=== PATIENT | female | born 1955 | race African-American/Black ===

== ENCOUNTER 2018-07-30 10:31 | Emergency (ER) | payer MEDICAID, MEDICARE ==
[~2018-07-30] VITALS: Ht 165.1 cm; Wt 90.0 kg
[~2018-07-30 10:31] MED LIST: AMLO5TAB88; BENZ1TAB7; DIVA-75; HYDR25TA; LEVO25TA7; LISI10TA5; PARO40TA75; RISP4; SIMV20TA2; ZOLP5TAB8
[2018-07-30] MEDS ORDERED: KETOROLAC 60MG/2ML VIAL IM ONE (11:15)
[2018-07-30 12:30] LABS: CLARITY URINE CLEAR (CLEAR); COLOR URINE YELLOW (YELLOW); KETONES URINE NEGATIVE (NEGATIVE); LEUKOCYTE ESTERASE URINE 1+ (NEGATIVE); NITRITE URINE NEGATIVE (NEGATIVE); OCCULT BLOOD URINE NEGATIVE (NEGATIVE); PH URINE 6.5 (4.5-8.0); PROTEIN URINE NEGATIVE (NEGATIVE); SPECIFIC GRAVITY URINE 1.012 (1.005-1.030); UROBILINOGEN URINE 0.2 E.U./dL (0.2-1.0)
[2018-07-30 14:47] VITALS: BP 134/82
== END 2018-07-30 14:45 | disposition home or self-care (01) ==
LOC: ER 10:44
DX: M54.5 Low back pain (principal); R53.1 Weakness; F31.9 Bipolar disorder, unspecified; I10 Essential (primary) hypertension; E03.9 Hypothyroidism, unspecified; F20.9 Schizophrenia, unspecified; Z88.0 Allergy status to penicillin; X50.3XXA Overexertion from repetitive movements, initial encounter; Y93.89 Activity, other specified; Y92.830 Public park as the place of occurrence of the external cause; Y99.8 Other external cause status
CPT/HCPCS: 81003; 96372; 99283; J1885

== ENCOUNTER 2019-02-11 11:52 | Emergency (ER) | payer MEDICARE, MEDICAID ==
[~2019-02-11] VITALS: Ht 170.2 cm; Wt 106.0 kg
[2019-02-11] MEDS ORDERED: SODIUM CHLORIDE 0.9% 1000ML BAG (SEPSIS BOLUS) IV ONE (12:30)
[2019-02-11] MEDS ORDERED: CEFTRIAXONE 1 G PREMIX 50 ML IV ONE (12:30)
[2019-02-11 12:44] LABS: BASOPHILS % 0.7 % (0.0-2.0); EOSINOPHILS % 1.5 % (0.0-5.0); HEMATOCRIT. 39.6 % (36.0-48.0); HEMOGLOBIN. 13.1 g/dL (12.0-16.0); LYMPHOCYTES % 9.3 % (20.0-50.0); MEAN CORPUSCULAR HEMOGLOBIN 30.7 pg (28.0-32.0); MEAN CORPUSCULAR VOLUME 92.7 fL (81.0-99.0); MEAN PLATELET VOLUME 7.9 fl (7.4-10.4); MONOCYTES % 7.2 % (2.0-8.0); NEUTROPHILS % 81.3 % (40.0-76.0); PLATELET 180 x1000/uL (130-400); RED BLOOD CELL COUNT 4.27 mill/uL (4.2-5.4); RED CELL DISTRIBUTION WIDTH 13.9 % (11.6-14.6)
[2019-02-11 12:48] LABS: CHLORIDE 101 mEq/L (98-107)
[2019-02-11 12:49] LABS: PROTHROMBIN TIME 10.1 sec (9.6-11.0)
[2019-02-11 12:55] LABS: ETHANOL BLOOD < 10 mg/dL
[2019-02-11 15:37] LABS: CLARITY URINE CLEAR (CLEAR); COLOR URINE YELLOW (YELLOW); KETONES URINE NEGATIVE (NEGATIVE); LEUKOCYTE ESTERASE URINE TRACE (NEGATIVE); NITRITE URINE NEGATIVE (NEGATIVE); OCCULT BLOOD URINE NEGATIVE (NEGATIVE); PH URINE 7.5 (4.5-8.0); PROTEIN URINE NEGATIVE (NEGATIVE); SPECIFIC GRAVITY URINE 1.007 (1.005-1.030); UROBILINOGEN URINE 0.2 E.U./dL (0.2-1.0)
[2019-02-11 16:10] LABS: *AMPHETAMINES SCREEN URINE NEGATIVE (NEGATIVE); *BARBITURATES SCREEN URINE NEGATIVE (NEGATIVE); *BENZODIAZEPINES SCREEN URINE NEGATIVE (NEGATIVE); *COCAINE SCREEN URINE NEGATIVE (NEGATIVE)
[2019-02-11 16:11] LABS: CANNABINOID URINE SCREEN NEGATIVE (NEGATIVE); METHADONE URINE SCREEN NEGATIVE (NEGATIVE); OPIATES URINE SCREEN NEGATIVE (NEGATIVE); PHENCYCLIDINE URINE SCREEN NEGATIVE (NEGATIVE)
[2019-02-11] MEDS ORDERED: LISINOPRIL 40MG TABLET PO ONE (17:45)
[2019-02-11] MEDS ORDERED: HYDROCHLOROTHIAZIDE 25MG TABLET PO ONE (17:45)
[2019-02-11] MEDS ORDERED: AMLODIPINE 10MG TABLET PO ONE (17:45)
[2019-02-11 18:49] VITALS: BP 160/103
== END 2019-02-11 19:08 | disposition home or self-care (01) ==
LOC: ER 11:52 → CANBEDREQ 19:58
DX: R42 Dizziness and giddiness (principal); F31.9 Bipolar disorder, unspecified; I10 Essential (primary) hypertension; E03.9 Hypothyroidism, unspecified; F20.9 Schizophrenia, unspecified; Z88.0 Allergy status to penicillin; Z79.899 Other long term (current) drug therapy
CPT/HCPCS: 36415; 70450; 71045; 80053; 80305; 80320; 81003; 83605; 83690; 84145; 84484; 85025; 85610; 87040; 87086; 93005; 96365; 99284; J0696; J7030; J7040; G0480

== ENCOUNTER 2020-02-23 11:29 | Inpatient (IN) | payer MEDICARE, MEDICAID ==
[~2020-02-23] VITALS: Ht 172.7 cm; Wt 106.1 kg
[2020-02-23 12:42] LABS: BASOPHILS % 0.7 % (0.0-2.0); EOSINOPHILS % 6.2 % (0.0-5.0); HEMATOCRIT. 37.8 % (36.0-48.0); HEMOGLOBIN. 12.9 g/dL (12.0-16.0); LYMPHOCYTES % 24.7 % (20.0-50.0); MEAN CORPUSCULAR HEMOGLOBIN 30.8 pg (28.0-32.0); MEAN CORPUSCULAR VOLUME 90.6 fL (81.0-99.0); MEAN PLATELET VOLUME 8.4 fl (7.4-10.4); MONOCYTES % 9.4 % (2.0-8.0); PLATELET 167 x1000/uL (130-400); RED BLOOD CELL COUNT 4.17 mill/uL (4.2-5.4); RED CELL DISTRIBUTION WIDTH 15.3 % (11.6-14.6)
[2020-02-23 12:50] LABS: CHLORIDE 107 mEq/L (98-107)
[2020-02-23] MEDS ORDERED: CEFEPIME HCL 2000MG/VIAL INJ IV ONE (13:15)
[2020-02-23] MEDS ORDERED: CEFAZOLIN 2000MG in DEXTROSE 5% WATER 100ML IV NR (13:30)
[2020-02-23] MEDS ORDERED: CEFEPIME 2,000 MG in DEXT 5% WATER 100 ML IV NR (13:30)
[2020-02-23] MEDS: FUROSEMIDE 40MG/4ML VIAL IV SCH (14:15)
[2020-02-23] MEDS ORDERED: IPRATROPIUM/ALBUTEROL 0.5-3(2.5)MG/3ML NEB NEB PRN (14:15)
[2020-02-23] MEDS ORDERED: ACETAMINOPHEN 325MG TABLET PO PRN (14:15)
[2020-02-23] MEDS ORDERED: ONDANSETRON HCL 4MG/2ML INJ IV PRN (14:15)
[2020-02-24] VITALS (7 sets, daily range): BP systolic 100–163; BP diastolic 56–100
[2020-02-24] MEDS ORDERED: DEXL60CA3 MT (03:10)
[2020-02-24] MEDS ORDERED: LINA145C MT (03:14)
[2020-02-24] MEDS ORDERED: ATOR20TA65 MT (03:15)
[2020-02-24] MEDS ORDERED: UMEC62.5 INH (04:09)
[2020-02-24 07:25] LABS: BASOPHILS % 0.6 % (0.0-2.0); EOSINOPHILS % 3.6 % (0.0-5.0); HEMATOCRIT. 39.9 % (36.0-48.0); HEMOGLOBIN. 13.4 g/dL (12.0-16.0); MEAN CORPUSCULAR HEMOGLOBIN 30.3 pg (28.0-32.0); MEAN CORPUSCULAR VOLUME 90.1 fL (81.0-99.0); MEAN PLATELET VOLUME 8.3 fl (7.4-10.4); MONOCYTES % 8.4 % (2.0-8.0); NEUTROPHILS % 67.4 % (40.0-76.0); PLATELET 167 x1000/uL (130-400); RED BLOOD CELL COUNT 4.43 mill/uL (4.2-5.4); RED CELL DISTRIBUTION WIDTH 15.2 % (11.6-14.6)
[2020-02-24 07:59] LABS: CHLORIDE 105 mEq/L (98-107)
[2020-02-24 08:12] LABS: T4 FREE 1.19 ng/dL (0.76-1.46)
[2020-02-24] MEDS: FUROSEMIDE 40MG/4ML VIAL IV SCH (08:22)
[2020-02-24] MEDS ORDERED: LEVO100T9 MT (10:08)
[2020-02-24] MEDS ORDERED: MEDICATION NOT ON FORMULARY EA (Dexlansoprazole (Dexilant) 1 CAP) MT SCH (10:15)
[2020-02-24] MEDS ORDERED: LINACLOTIDE MT SCH (10:15)
[2020-02-24] MEDS: LISINOPRIL 20MG TABLET PO SCH (10:29)
[2020-02-24] MEDS: DIVALPROEX SODIUM 250MG DR TABLET PO SCH ×2 (10:30→22:43)
[2020-02-24] MEDS: AMLODIPINE 5MG TABLET PO SCH (10:30)
[2020-02-24] MEDS: HYDROCHLOROTHIAZIDE 25MG TABLET PO SCH (10:30)
[2020-02-24] MEDS ORDERED: ENOXAPARIN 40MG/0.4ML SYR SUBCUT SCH (12:00)
[2020-02-24] MEDS: UMECLIDINIUM BROMIDE 1 INH BLST.W.DEV IH SCH (12:00)
[2020-02-24 12:17] LABS: C REACTIVE PROTEIN QUANT 0.7 mg/L (0.0-3.0)
[2020-02-24] MEDS: BENZTROPINE MESYLATE 1MG TABLET PO SCH ×2 (15:00→22:44)
[2020-02-24 17:18] LABS: D-DIMER 1.47 mg/L FEU (<0.50); PROTHROMBIN TIME 11.2 sec (9.6-11.0)
[2020-02-24] MEDS: SODIUM CHLORIDE 0.45% 1,000 ML IV SCH (17:30)
[2020-02-24 18:14] LABS: BG CARBOXYHEMOGLOBIN 0.3 % (0.5-1.5); BG DEOXYHEMOGLOBIN 6.5 % (0.0-5.0); BG FRACTION INSPIRED OXYGEN 21; BG HCO3 ACT 30.1 mmol/L (22.0-26.0); BG METHEMOGLOBIN 0.1 % (0.0-1.5); BG OXYGEN SATURATION 93.5 % (92.0-98.5); BG OXYHEMOGLOBIN 93.1 % (94.0-97.0); BG PCO2 41.6 mmHg (35.0-45.0); BG PH 7.477 (7.350-7.450); BG PO2 68.2 mmHg (75.0-100.0); BG SAMPLE SITE RIGHT RADIAL; BG TOTAL HEMOGLOBIN 13.5 g/dL (12.0-18.0); BG VENT MODE ROOM AIR
[2020-02-24 18:40] LABS: CLARITY URINE CLEAR (CLEAR); COLOR URINE YELLOW (YELLOW); KETONES URINE NEGATIVE (NEGATIVE); LEUKOCYTE ESTERASE URINE TRACE (NEGATIVE); NITRITE URINE NEGATIVE (NEGATIVE); OCCULT BLOOD URINE NEGATIVE (NEGATIVE); PH URINE 6.5 (4.5-8.0); PROTEIN URINE NEGATIVE (NEGATIVE)
[2020-02-24] MEDS ORDERED: ZOLPIDEM TARTRATE 5MG TABLET PO PRN (20:30)
[2020-02-24] MEDS: ATORVASTATIN CALCIUM 20MG TABLET PO SCH (22:43)
[2020-02-24] MEDS: LEVOFLOXACIN 500MG PREMIX 100 ML IV SCH (22:43)
[2020-02-24] MEDS: ENOXAPARIN 30MG/0.3ML SYR SUBCUT SCH (22:46)
[2020-02-25] VITALS (7 sets, daily range): BP systolic 92–122; BP diastolic 56–75
[2020-02-25] MEDS: BENZTROPINE MESYLATE 1MG TABLET PO SCH ×3 (05:42→21:00)
[2020-02-25] MEDS: PANTOPRAZOLE 40MG DR TABLET PO SCH (06:02)
[2020-02-25 07:41] LABS: BASOPHILS % 0.9 % (0.0-2.0); EOSINOPHILS % 7.2 % (0.0-5.0); HEMATOCRIT. 38.3 % (36.0-48.0); HEMOGLOBIN. 12.8 g/dL (12.0-16.0); LYMPHOCYTES % 34.6 % (20.0-50.0); MEAN CORPUSCULAR HEMOGLOBIN 29.9 pg (28.0-32.0); MEAN CORPUSCULAR VOLUME 89.7 fL (81.0-99.0); MEAN PLATELET VOLUME 8.9 fl (7.4-10.4); NEUTROPHILS % 45.3 % (40.0-76.0); PLATELET 180 x1000/uL (130-400); RED BLOOD CELL COUNT 4.27 mill/uL (4.2-5.4); RED CELL DISTRIBUTION WIDTH 15.2 % (11.6-14.6)
[2020-02-25 08:03] LABS: CHLORIDE 101 mEq/L (98-107)
[2020-02-25] MEDS: FUROSEMIDE 40MG/4ML VIAL IV SCH (08:53)
[2020-02-25] MEDS: LEVOTHYROXINE SODIUM 100MCG TABLET PO SCH (08:54)
[2020-02-25] MEDS: DIVALPROEX SODIUM 250MG DR TABLET PO SCH ×2 (08:54→20:59)
[2020-02-25] MEDS: HYDROCHLOROTHIAZIDE 25MG TABLET PO SCH (08:54)
[2020-02-25] MEDS: LISINOPRIL 20MG TABLET PO SCH (08:54)
[2020-02-25] MEDS: AMLODIPINE 5MG TABLET PO SCH (08:54)
[2020-02-25] MEDS: ENOXAPARIN 30MG/0.3ML SYR SUBCUT SCH ×2 (08:57→21:00)
[2020-02-25] MEDS: UMECLIDINIUM BROMIDE 1 INH BLST.W.DEV IH SCH (09:00)
[2020-02-25] MEDS ORDERED: FUROSEMIDE 40MG TABLET PO SCH (09:30)
[2020-02-25] MEDS: SODIUM CHLORIDE 0.45% 1,000 ML IV SCH (17:42)
[2020-02-25] MEDS: LEVOFLOXACIN 500MG PREMIX 100 ML IV SCH (18:37)
[2020-02-25] MEDS: ATORVASTATIN CALCIUM 20MG TABLET PO SCH (20:59)
[2020-02-26] VITALS (7 sets, daily range): BP systolic 99–126; BP diastolic 66–74
[2020-02-26] MEDS: PANTOPRAZOLE 40MG DR TABLET PO SCH (06:18)
[2020-02-26] MEDS: BENZTROPINE MESYLATE 1MG TABLET PO SCH ×3 (06:18→20:05)
[2020-02-26] MEDS: AMLODIPINE 5MG TABLET PO SCH (08:33)
[2020-02-26] MEDS: DIVALPROEX SODIUM 250MG DR TABLET PO SCH ×2 (08:33→20:05)
[2020-02-26] MEDS: LEVOTHYROXINE SODIUM 100MCG TABLET PO SCH (08:33)
[2020-02-26] MEDS: ENOXAPARIN 30MG/0.3ML SYR SUBCUT SCH ×2 (08:34→20:04)
[2020-02-26 09:01] LABS: CHLORIDE 101 mEq/L (98-107)
[2020-02-26] MEDS: UMECLIDINIUM BROMIDE 1 INH BLST.W.DEV IH SCH (09:21)
[2020-02-26] MEDS ORDERED: AMLODIPINE 10MG TABLET PO SCH (16:44)
[2020-02-26 17:03] LABS: BASOPHILS % 1.1 % (0.0-2.0); EOSINOPHILS % 10.6 % (0.0-5.0); HEMATOCRIT. 38.3 % (36.0-48.0); HEMOGLOBIN. 12.9 g/dL (12.0-16.0); LYMPHOCYTES % 33.2 % (20.0-50.0); MEAN CORPUSCULAR HEMOGLOBIN 30.5 pg (28.0-32.0); MEAN CORPUSCULAR VOLUME 90.9 fL (81.0-99.0); MEAN PLATELET VOLUME 8.9 fl (7.4-10.4); MONOCYTES % 9.5 % (2.0-8.0); NEUTROPHILS % 45.6 % (40.0-76.0); PLATELET 166 x1000/uL (130-400); RED BLOOD CELL COUNT 4.21 mill/uL (4.2-5.4)
[2020-02-26] MEDS: SODIUM CHLORIDE 0.45% 1,000 ML IV SCH (17:40)
[2020-02-26] MEDS: ATORVASTATIN CALCIUM 20MG TABLET PO SCH (20:04)
[2020-02-26] MEDS: LEVOFLOXACIN 500MG PREMIX 100 ML IV SCH (20:18)
[2020-02-26 21:35] LABS: COVID-19 PCR RNA NOT DETECTED
[2020-02-26 21:36] LABS: COVID-19 PCR RNA NOT DETECTED
[2020-02-27] VITALS (7 sets, daily range): BP systolic 123–148; BP diastolic 78–85
[2020-02-27] MEDS: BENZTROPINE MESYLATE 1MG TABLET PO SCH ×3 (05:49→22:44)
[2020-02-27] MEDS: PANTOPRAZOLE 40MG DR TABLET PO SCH (05:49)
[2020-02-27] MEDS: DIVALPROEX SODIUM 250MG DR TABLET PO SCH ×2 (08:23→21:06)
[2020-02-27] MEDS: LEVOTHYROXINE SODIUM 100MCG TABLET PO SCH (08:24)
[2020-02-27] MEDS: UMECLIDINIUM BROMIDE 1 INH BLST.W.DEV IH SCH (08:24)
[2020-02-27] MEDS: ENOXAPARIN 30MG/0.3ML SYR SUBCUT SCH ×2 (08:24→21:06)
[2020-02-27] MEDS ORDERED: AMLODIPINE 10MG TABLET PO SCH (09:00)
[2020-02-27] MEDS ORDERED: LEVOFLOXACIN 500MG TABLET PO SCH (11:00)
[2020-02-27] MEDS ORDERED: LEVO500T2 MT (15:17)
[2020-02-27] MEDS ORDERED: ALBU90AE INH (15:17)
[2020-02-27] MEDS: SODIUM CHLORIDE 0.45% 1,000 ML IV SCH (17:35)
[2020-02-27 20:32] LABS: BASOPHILS % 0.4 % (0.0-2.0); EOSINOPHILS % 8.6 % (0.0-5.0); HEMATOCRIT. 37.8 % (36.0-48.0); HEMOGLOBIN. 12.5 g/dL (12.0-16.0); LYMPHOCYTES % 30.8 % (20.0-50.0); MEAN CORPUSCULAR HEMOGLOBIN 30.3 pg (28.0-32.0); MEAN CORPUSCULAR VOLUME 91.6 fL (81.0-99.0); MEAN PLATELET VOLUME 8.7 fl (7.4-10.4); MONOCYTES % 12.5 % (2.0-8.0); NEUTROPHILS % 47.7 % (40.0-76.0); PLATELET 144 x1000/uL (130-400); RED BLOOD CELL COUNT 4.13 mill/uL (4.2-5.4); RED CELL DISTRIBUTION WIDTH 15.4 % (11.6-14.6)
[2020-02-27 20:40] LABS: CHLORIDE 102 mEq/L (98-107)
[2020-02-27] MEDS: ATORVASTATIN CALCIUM 20MG TABLET PO SCH (21:06)
[2020-02-28] VITALS: BP 127/78
[2020-02-28] MEDS ORDERED: FAMOTIDINE 20MG TABLET PO SCH (06:40)
== END 2020-02-28 01:09 | DRG 871 ==
LOC: ER 11:35 → 7EST 13:41 → EDBEDREQTM 13:42 → EDBEDREQ 13:42 → EDBEDREQTM 13:54 → ENRESERV 23:42 → 5WST 02-27 16:22
PROVIDERS: ADMIT Internal Medicine; ATTEND Internal Medicine
DX: A41.9 Sepsis, unspecified organism (principal); J96.00 Acute respiratory failure, unspecified whether with hypoxia or hypercapnia; J18.9 Pneumonia, unspecified organism; N17.9 Acute kidney failure, unspecified; E66.2 Morbid (severe) obesity with alveolar hypoventilation; I11.0 Hypertensive heart disease with heart failure; I50.9 Heart failure, unspecified; E03.9 Hypothyroidism, unspecified; J45.909 Unspecified asthma, uncomplicated; Z20.828 Contact with and (suspected) exposure to other viral communicable diseases; F20.9 Schizophrenia, unspecified; F31.9 Bipolar disorder, unspecified; Z79.899 Other long term (current) drug therapy; Z88.0 Allergy status to penicillin; Z68.35 Body mass index [BMI] 35.0-35.9, adult
CPT/HCPCS: 36415; 36600; 71045; 80053; 81003; 82375; 82728; 82805; 83615; 83735; 83880; 84439; 84443; 84484; 85025; 85379; 85384; 86140; 93005; 99285; J0690; J0692; J1650; J1940; J1956; J7060; U0001

== ENCOUNTER 2020-05-20 19:10 | Inpatient (IN) | payer MEDICARE, MEDICAID ==
[~2020-05-20] VITALS: Ht 170.2 cm; Wt 84.0 kg
[~2020-05-20 19:10] MED LIST changes: +ALBU90AE INH; +ATOR20TA65 MT; +DEXL60CA3 MT; -HYDR25TA; +LEVO100T9 MT; -LEVO25TA7; +LEVO500T2 MT; +LINA145C MT; -LISI10TA5; +UMEC62.5 INH
[2020-05-20 20:59] LABS: BASOPHILS % 0.8 % (0.0-2.0); EOSINOPHILS % 11.2 % (0.0-5.0); HEMATOCRIT. 33.7 % (36.0-48.0); HEMOGLOBIN. 11.1 g/dL (12.0-16.0); LYMPHOCYTES % 33.2 % (20.0-50.0); MEAN CORPUSCULAR HEMOGLOBIN 30.3 pg (28.0-32.0); MEAN CORPUSCULAR VOLUME 91.7 fL (81.0-99.0); MEAN PLATELET VOLUME 8.2 fl (7.4-10.4); MONOCYTES % 8.3 % (2.0-8.0); NEUTROPHILS % 46.5 % (40.0-76.0); PLATELET 156 x1000/uL (130-400); RED BLOOD CELL COUNT 3.67 mill/uL (4.2-5.4); RED CELL DISTRIBUTION WIDTH 16.2 % (11.6-14.6)
[2020-05-20 21:13] LABS: CHLORIDE 108 mEq/L (98-107)
[2020-05-20 21:20] LABS: PROTHROMBIN TIME 10.9 sec (9.6-11.0)
[2020-05-20 22:42] LABS: CLARITY URINE CLEAR (CLEAR); COLOR URINE YELLOW (YELLOW); KETONES URINE NEGATIVE (NEGATIVE); LEUKOCYTE ESTERASE URINE 2+ (NEGATIVE); NITRITE URINE NEGATIVE (NEGATIVE); OCCULT BLOOD URINE NEGATIVE (NEGATIVE); PROTEIN URINE NEGATIVE (NEGATIVE); SPECIFIC GRAVITY URINE 1.007 (1.005-1.030); UROBILINOGEN URINE 0.2 E.U./dL (0.2-1.0)
[2020-05-20] MEDS ORDERED: NITROFURANTOIN 100MG M/M CAPSULE PO ONE (23:00)
[2020-05-21 08:00] VITALS: BP 165/102
[2020-05-21 08:30] VITALS: BP 165/102
[2020-05-21] MEDS ORDERED: ACETAMINOPHEN 650MG/20.3ML UDC PO PRN (11:30)
[2020-05-21] MEDS ORDERED: HYDROCODONE/ACETAMINOPHEN 5/325MG TABLET PO PRN (11:30)
[2020-05-21] MEDS ORDERED: ACETAMINOPHEN 650MG SUPP PR PRN (11:30)
[2020-05-21 12:00] VITALS: BP 170/99
[2020-05-21] MEDS ORDERED: SODIUM CHLORIDE 0.45% 1,000 ML IV SCH (12:00)
[2020-05-21] MEDS: ENOXAPARIN 40MG/0.4ML SYR SUBCUT SCH (12:19)
[2020-05-21] MEDS: HYDRALAZINE 20MG/ML VIAL IV PRN (12:39)
[2020-05-21] MEDS: LEVOFLOXACIN 500MG PREMIX 100 ML IV SCH (12:51)
[2020-05-21 16:00] VITALS: BP 130/84
[2020-05-21 16:04] LABS: BASOPHILS % 0.6 % (0.0-2.0); EOSINOPHILS % 7.3 % (0.0-5.0); HEMATOCRIT. 37.4 % (36.0-48.0); HEMOGLOBIN. 12.5 g/dL (12.0-16.0); LYMPHOCYTES % 23.8 % (20.0-50.0); MEAN CORPUSCULAR HEMOGLOBIN 30.3 pg (28.0-32.0); MEAN CORPUSCULAR VOLUME 90.6 fL (81.0-99.0); MEAN PLATELET VOLUME 8.3 fl (7.4-10.4); MONOCYTES % 9.3 % (2.0-8.0); PLATELET 164 x1000/uL (130-400); RED BLOOD CELL COUNT 4.13 mill/uL (4.2-5.4); RED CELL DISTRIBUTION WIDTH 16.3 % (11.6-14.6)
[2020-05-21 16:14] LABS: CHLORIDE 111 mEq/L (98-107)
[2020-05-21] MEDS ORDERED: LORAZEPAM 2MG/ML CPJ IV PRN (16:45)
[2020-05-21] MEDS ORDERED: LACTULOSE 20G/30ML UDC PO PRN (16:45)
[2020-05-21] MEDS ORDERED: IPRATROPIUM/ALBUTEROL 0.5-3(2.5)MG/3ML NEB HHN PRN (16:45)
[2020-05-21] MEDS ORDERED: DIPHENHYDRAMINE 50MG/ML VIAL IV PRN (16:45)
[2020-05-21] MEDS ORDERED: ONDANSETRON HCL 4MG/2ML INJ IV PRN (16:45)
[2020-05-21] MEDS ORDERED: FUROSEMIDE 40MG/4ML VIAL IVP NR (17:00)
[2020-05-21 20:00] VITALS: BP 143/85
[2020-05-21] MEDS: FAMOTIDINE 20MG TABLET PO SCH (21:31)
[2020-05-22] VITALS (8 sets, daily range): BP systolic 122–163; BP diastolic 58–99
[2020-05-22] MEDS: LEVOTHYROXINE SODIUM 100MCG TABLET PO SCH (06:10)
[2020-05-22 06:32] LABS: CHLORIDE 107 mEq/L (98-107)
[2020-05-22 06:47] LABS: BASOPHILS % 0.7 % (0.0-2.0); EOSINOPHILS % 8.7 % (0.0-5.0); HEMATOCRIT. 36.7 % (36.0-48.0); HEMOGLOBIN. 12.3 g/dL (12.0-16.0); LYMPHOCYTES % 16.8 % (20.0-50.0); MEAN CORPUSCULAR HEMOGLOBIN 30.4 pg (28.0-32.0); MEAN CORPUSCULAR VOLUME 90.8 fL (81.0-99.0); MEAN PLATELET VOLUME 8.7 fl (7.4-10.4); MONOCYTES % 9.2 % (2.0-8.0); NEUTROPHILS % 64.6 % (40.0-76.0); PLATELET 146 x1000/uL (130-400); RED BLOOD CELL COUNT 4.04 mill/uL (4.2-5.4); RED CELL DISTRIBUTION WIDTH 16.3 % (11.6-14.6)
[2020-05-22 06:48] LABS: T4 FREE 1.18 ng/dL (0.76-1.46)
[2020-05-22] MEDS: ENOXAPARIN 40MG/0.4ML SYR SUBCUT SCH (10:10)
[2020-05-22] MEDS: ATORVASTATIN CALCIUM 20MG TABLET PO SCH (10:10)
[2020-05-22] MEDS: LEVOFLOXACIN 500MG PREMIX 100 ML IV SCH (11:53)
[2020-05-22] MEDS ORDERED: LEVO500T2 PO (12:30)
[2020-05-22 15:27] LABS: BASOPHILS % 0.7 % (0.0-2.0); EOSINOPHILS % 7.4 % (0.0-5.0); HEMOGLOBIN. 12.3 g/dL (12.0-16.0); LYMPHOCYTES % 27.1 % (20.0-50.0); MEAN CORPUSCULAR HEMOGLOBIN 30.7 pg (28.0-32.0); MEAN CORPUSCULAR VOLUME 92.1 fL (81.0-99.0); MEAN PLATELET VOLUME 8.4 fl (7.4-10.4); MONOCYTES % 9.4 % (2.0-8.0); NEUTROPHILS % 55.4 % (40.0-76.0); PLATELET 149 x1000/uL (130-400); RED BLOOD CELL COUNT 4.02 mill/uL (4.2-5.4); RED CELL DISTRIBUTION WIDTH 16.4 % (11.6-14.6)
[2020-05-22 15:35] LABS: CHLORIDE 108 mEq/L (98-107)
[2020-05-22] MEDS: FAMOTIDINE 20MG TABLET PO SCH (20:56)
[2020-05-23] VITALS: BP 119/83
[2020-05-23] MEDS: HYDRALAZINE 20MG/ML VIAL IV PRN (03:34)
[2020-05-23 04:00] VITALS: BP_SYST 112; BP_SYST 113; BP_SYST 136; BP_DIAS 67; BP_DIAS 69; BP_DIAS 71
[2020-05-23 06:19] LABS: HEMATOCRIT 35.9 % (36.0-48.0); HEMOGLOBIN 11.9 g/dL (12.0-16.0); MEAN CORPUSCULAR HEMOGLOBIN 30.2 pg (28.0-32.0); PLATELET 151 x1000/uL (130-400); RED BLOOD CELL COUNT 3.94 mill/uL (4.2-5.4); RED CELL DISTRIBUTION WIDTH 16.3 % (11.6-14.6)
[2020-05-23 06:22] LABS: CHLORIDE 110 mEq/L (98-107)
[2020-05-23] MEDS: LEVOTHYROXINE SODIUM 100MCG TABLET PO SCH (07:43)
[2020-05-23 08:00] VITALS: BP 138/78
[2020-05-23] MEDS: ATORVASTATIN CALCIUM 20MG TABLET PO SCH (08:50)
[2020-05-23] MEDS: ENOXAPARIN 40MG/0.4ML SYR SUBCUT SCH (08:51)
[2020-05-23] MEDS ORDERED: METOPROLOL TARTRATE 25MG TABLET PO NR (09:10)
[2020-05-23] MEDS: LEVOFLOXACIN 500MG PREMIX 100 ML IV SCH (11:00)
[2020-05-23 12:00] VITALS: BP 113/71
[2020-05-23 14:05] VITALS: BP 113/71
[2020-05-24] MEDS ORDERED: LEVOFLOXACIN 500MG TABLET PO SCH (11:00)
== END 2020-05-23 15:30 | DRG 689 ==
LOC: ER 20:05 → 8WST 05-21 00:13 → EDBEDREQTM 05-21 00:16 → EDBEDREQDT 05-21 00:16 → EDBEDREQ 05-21 00:16 → ENRESERV 05-21 07:20
PROVIDERS: ADMIT Internal Medicine; ATTEND Internal Medicine
DX: N39.0 Urinary tract infection, site not specified (principal); I50.43 Acute on chronic combined systolic (congestive) and diastolic (congestive) heart failure; E86.0 Dehydration; R26.89 Other abnormalities of gait and mobility; F31.9 Bipolar disorder, unspecified; I11.0 Hypertensive heart disease with heart failure; E03.9 Hypothyroidism, unspecified; D64.9 Anemia, unspecified; Z88.0 Allergy status to penicillin; W07.XXXA Fall from chair, initial encounter; Y93.89 Activity, other specified; Y92.098 Other place in other non-institutional residence as the place of occurrence of the external cause; Y99.8 Other external cause status
CPT/HCPCS: 36415; 71045; 80048; 80053; 81003; 83880; 84145; 84439; 84443; 85025; 85027; 85379; 86850; 86900; 93005; 93306; 93970; 97162; 99285; J0360; J1650; J1940; J1956

== ENCOUNTER 2021-12-26 11:11 | Emergency (ER) | payer MEDICARE, MEDICAID ==
[~2021-12-26] VITALS: Ht 165.1 cm; Wt 73.0 kg
[~2021-12-26 11:11] MED LIST changes: +AMLO10TA80 PO; -AMLO5TAB88; -ATOR20TA65 MT; -DEXL60CA3 MT; +DIVA-73 PO; +FURO40TA5 PO; +LEVO500T2 PO; -LINA145C MT; +LISI40TA13 PO; +METO-396 PO; +PRAZ1CAP5 PO; +RISP2TAB85 PO; -SIMV20TA2
[2021-12-26 12:50] LABS: BASOPHILS % 0.6 % (0.0-2.0); EOSINOPHILS % 0.9 % (0.0-5.0); HEMATOCRIT. 30.3 % (36.0-48.0); LYMPHOCYTES % 27.2 % (20.0-50.0); MEAN CORPUSCULAR VOLUME 90.7 fL (81.0-99.0); MEAN PLATELET VOLUME 7.1 fl (7.4-10.4); MONOCYTES % 7.9 % (2.0-8.0); NEUTROPHILS % 63.4 % (40.0-76.0); PLATELET 198 x1000/uL (130-400); RED BLOOD CELL COUNT 3.34 mill/uL (4.2-5.4); RED CELL DISTRIBUTION WIDTH 16.3 % (11.6-14.6)
[2021-12-26 12:56] LABS: CHLORIDE 109 mEq/L (98-107)
[2021-12-26 18:45] VITALS: BP 135/81
== END 2021-12-26 19:32 | disposition home or self-care (01) ==
LOC: ER 11:11
DX: M25.552 Pain in left hip (principal); M25.551 Pain in right hip; M54.9 Dorsalgia, unspecified; G89.11 Acute pain due to trauma; Z91.81 History of falling; I10 Essential (primary) hypertension; D64.9 Anemia, unspecified; E03.9 Hypothyroidism, unspecified; F20.9 Schizophrenia, unspecified; F31.9 Bipolar disorder, unspecified
CPT/HCPCS: 36415; 73522; 80053; 85025; 99285